=== PATIENT | male | born 1955 | race Caucasian/White ===

== ENCOUNTER → 2017-02-08 | Outpatient (CLI) | payer BC ==
[~2017-02-08] MED LIST: ASPIRIN81 M2 PO; COQ-10100 MG PO; FLEXERIL10 MG PO; NEURONTIN600 MG PO; NEXIUM PO; ZESTRIL10 MG PO
--- NOTE | ~2017-02-08 | US84 ---
[id number] [facility]. [facility] [address] [place], [place] [address] [id number] O MR#: [id number] Acc #: [id number] NAME: SARAHY ORTIZ : 1955 SEX: M STUDY DATE/TIME: 02/08/2017 8:45 UNIT: CGUS ROOM: STUDY DESCRIPTION: US LE Veins Complete Edin Stdy Attending Physician: Walt Fregoso Ordering Physician: Physician Non-Staff Primary Care Physician: Kj Ly M.D. MEDICAL IMAGING REPORT This report is preliminary unless electronic signature is present EXAM Bilateral lower extremity venous Doppler, 02/08/2017. COMPARISON None CLINICAL HISTORY Bilateral leg cramping pain for 2 months. History of DVT. PROCEDURE Ziegler-scale imaging, color-Doppler flow imaging, and Doppler waveform analysis. 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 Otherwise, there is normal color flow, compressibility, and where appropriate respiratory phasicity and/or compressibility in both lower extremity deep venous system as well as in the superficial saphenous veins. IMPRESSION Normal negative bilateral lower extremity venous Doppler. No evidence of DVT. Dictated by... Jose Ellison M.D. THIS IS AN ELECTRONICALLY VERIFIED REPORT Jose Ellison M.D. at 02/11/2017 10:33 AM BILLY/antonio TD: 02/08/2017 11:43 JOB #: [id number] MEDICAL IMAGING REPORT Page 1 of 1 COPY
--- NOTE | ~2017-02-08 | US10 ---
[id number] [facility] [address] [place], [place] [address] [id number] O MR#: [id number] Acc #: [id number] NAME: SARAHY ORTIZ : 1955 SEX: M STUDY DATE/TIME: 02/08/2017 8:29 UNIT: CGUS ROOM: STUDY DESCRIPTION: US Aorta Complete Attending Physician: Walt Fregoso Ordering Physician: Physician Non-Staff Primary Care Physician: Kj Ly M.D. MEDICAL IMAGING REPORT This report is preliminary unless electronic signature is present EXAM Abdominal aorta ultrasound INDICATION Abdominal aortic aneurysm screening. History of hypertension and smoking history. PROCEDURE Ziegler-scale, color Doppler spectral imaging abdominal aorta. COMPARISON CT of the abdomen and pelvis 04/17/2016. FINDINGS Proximal aorta measures 2.3 cm. Mid aorta measures up to 3.4 cm. Distal aorta measures approximately 3 x 4 cm. The distal aorta measured up to 3.4 cm AP dimension on the previous CT. IMPRESSION Aneurysmal dilation of the mid and distal abdominal aorta. Measurements are slightly greater than on a comparison CT, but this may be related to differences in technique. Dictated by... Gerard Guajardo M.D. THIS IS AN ELECTRONICALLY VERIFIED REPORT Gerard Guajardo M.D. at 02/11/2017 7:43 AM MARCIO/miri TD: 02/08/2017 12:49 JOB #: [id number] MEDICAL IMAGING REPORT Page 1 of 1 COPY
--- NOTE | ~2017-02-08 | CT57 ---
[facility] A Service [facility] RADIOLOGY TEXT RESULTS PATIENT: SARAHY ORTIZ LOCATION: [facility] : [birth year] UNIT #: [id number] AGE: [address]: JORGE FREGOSO MD SEX: M ORDER DR: [id number] [facility] [address] [place], [place] [address] [id number] O MR#: [id number] Acc #: [id number] NAME: SARAHY ORTIZ : 1955 SEX: M STUDY DATE/TIME: 02/08/2017 9:22 UNIT: CGUS ROOM: STUDY DESCRIPTION: CT Chest Wo Cont Attending Physician: Jorge Fregoso Ordering Physician: Jose Not Listed Primary Care Physician: Kj Ly M.D. MEDICAL IMAGING REPORT This report is preliminary unless electronic signature is present EXAM CT chest without contrast. INDICATIONS Follow up thoracic aortic aneurysm. Shortness of air for the past [address] of the chest. COMPARISON 04/17/2016 FINDINGS Aortic root measures 3.9 cm, previously 3.7 cm. The ascending thoracic aorta measures 4.3 cm in diameter, previously measured at 4 cm. Scattered coronary artery calcification. No adenopathy. Centrilobular emphysema. There are a few clustered micronodules in the right upper lobe. No dense consolidation. No acute findings in the included upper abdomen. No aggressive-appearing bone lesion. IMPRESSION 1. Aortic root measures 3.9 cm, previously 3.7 cm. Ascending thoracic aorta measures 4.3 cm ,previously 4 cm. Some of the difference could be related to differences in technique and lack of contrast on this study. 2. Persistent clustered micronodules in the right upper lobe suggesting chronic infectious or inflammatory small airways change. 3. Emphysema. Dictated by... Gerard Guajardo M.D. [facility] A Service [facility] RADIOLOGY TEXT RESULTS PATIENT: SARAHY ORTIZ LOCATION: [facility] : 57 UNIT #: [id number] AGE: [address]: JORGE FREGOSO MD SEX: M ORDER DR: THIS IS AN ELECTRONICALLY VERIFIED REPORT Gerard Guajardo M.D. at 02/11/2017 7:43 AM Shauna TD: 02/08/2017 12:44 JOB #: [id number] MEDICAL IMAGING REPORT Page 1 of 1 COPY
== END | disposition home or self-care (01) ==
LOC: CGUS 07:41
DX: I71.2 Thoracic aortic aneurysm, without rupture (principal); I10 Essential (primary) hypertension; R60.0 Localized edema; I83.93 Asymptomatic varicose veins of bilateral lower extremities; R91.8 Other nonspecific abnormal finding of lung field; J43.9 Emphysema, unspecified; I71.4 Abdominal aortic aneurysm, without rupture; Z87.891 Personal history of nicotine dependence
CPT/HCPCS: 71250; 76770; 93970